=== PATIENT | male | born 1950 | race Caucasian/White ===

== ENCOUNTER 2017-05-30 12:09 | Day surgery (SDC) | payer MEDICARE, OTHER ==
[~2017-05-30] VITALS: Ht 172.7 cm; Wt 92.3 kg
[~2017-05-30 12:09] MED LIST: ASPI325; ASPI325 PO; CLARITIN10 MG PO; ENOX40I SC; GLUCOSAMINE CH PO; HYDR1TAB94 PO; LORA10ER PO; NAPR220 PO; OXYC5 PO; PROM25 PO
[2017-05-30] MEDS ORDERED: ASPI325 PO (12:30)
== END 2017-05-30 13:22 | disposition home or self-care (01) ==
LOC: ORSCSDS 12:09
DX: M54.16 Radiculopathy, lumbar region (principal)
CPT/HCPCS: 99211; J1040

== ENCOUNTER → 2018-02-17 | Outpatient (CLI) | payer MEDICARE, OTHER | END | disposition home or self-care (01) | LOC: LAB SHORT 10:45 → LAB EV 10:45 | DX: S61.402A Unspecified open wound of left hand, initial encounter (principal) | CPT/HCPCS: 87070; 87075; 87077; 87186; 87205 ==

== ENCOUNTER 2019-05-26 11:35 | Inpatient (IN) | payer MEDICARE, OTHER ==
[~2019-05-26] VITALS: Ht 172.7 cm; Wt 96.0 kg
[2019-05-28] MEDS ORDERED: ASPI325 PO (06:21)
[2019-05-28] MEDS ORDERED: DIPH50 PO (06:22)
--- NOTE | 2019-05-28 06:48 | NUR ---
Ambulatory in Day Surgery History, Chart, Medications and Allergies reviewed before start of procedure. Lungs clear T/O to Auscultation. Patient confirms NPO status and agrees with scheduled surgery. Pre-Op teaching done. Pt verbalizes understanding.
--- NOTE | 2019-05-28 18:42 | NUR ---
SHIFT SUMMARY PT HAS DONE WELL POST OP BUT DOES STRUGGLE WITH HTN. PAIN WELL MANAGED, TOLERATING DIET WITH ONE EPISODE OF EMESIS POST THERAPY.
[2019-05-29 04:05] LABS: Hematocrit 35.3 % (37.0-53.0); Hemoglobin 11.8 g/dL (13.5-17.5); Mean Corpuscular HGB 31.1 pg (26.0-34.0); Mean Corpuscular HGB Conc 33.4 g/dL (31.5-36.5); Mean Corpuscular Volume 93 fL (80-100); Mean Platelet Volume 10.5 fL (9.1-12.4); Platelet Count 278 K/mm3 (150-400); RDW Coefficient Variation 12.7 % (11.7-14.2); RDW Standard Deviation 43.3 fL (35.1-46.3); White Blood Cell Count 14.44 K/mm3 (4.00-11.30)
[2019-05-29 04:28] LABS: Anion Gap 7 mmol/L (6-16); Blood Urea Nitrogen 15 mg/dL (8-24); Bun/Creatinine Ratio 20.2 (12.0-20.0); CO2, Blood 27 mmol/L (21-32); Calcium, Blood 8.3 mg/dL (8.5-10.1); Chloride, Blood 103 mmol/L (98-108); Creatinine, Blood 0.74 mg/dL (0.60-1.20); Glomerular Filtration Rate >60 (60-); Glucose, Blood 122 mg/dL (70-99); Sodium, Blood 137 mmol/L (136-145)
--- NOTE | 2019-05-29 06:21 | NUR ---
SHIFT SUMMARY: MAL HAS RESTED COMFORTABLY FOR MOST OF THE SHIFT. HE STATES THAT HIS PAIN IS TOLERABLE WITH THE USE OF APAP AND TORADOL. HE DID TAKE ONE 5 MG OXYCONTIN AT BEDTIME. HE IS WALKING WELL WITH THE FWW. HE IS TOLERATING PO INTAKE WELL. ALL THREE DRESSINGS ARE C/D&I. HE IS ABLE TO MAKE HIS NEEDS KNOWN. MARY HOSE, PAS AND POLAR PACK IN PLACE. HE IS SITTING IN THE RECLINER AT THE BEDSIDE WITH HIS CALL LIGHT IN REACH.
[2019-05-29] MEDS ORDERED: LEVFLO500 PO (07:59)
[2019-05-29] MEDS ORDERED: ASPI325EC PO (07:59)
[2019-05-29] MEDS ORDERED: ENOX40I SC (07:59)
[2019-05-29] MEDS ORDERED: Percocet 5-3251 EACH PO (08:00)
[2019-05-29 12:11] LABS: BAND PERCENT MAN 1 % (0-8); BASOPHILS ABSOLUTE MAN 0.14 K/mm3 (0.00-0.23); BASOPHILS PERCENT MAN 1 % (0-2); BLASTS PERCENT MAN 1 % (0-0); EOSINOPHILS ABSOLUTE MAN 0.28 K/mm3 (0.00-0.68); EOSINOPHILS PERCENT MAN 2 % (0-6); LYMPHOCYTES ABSOLUTE MAN 6.35 K/mm3 (0.84-5.20); LYMPHOCYTES PERCENT MAN 44 % (21-46); METAMYELOCYTE ABSOLUTE MAN 0.28 K/mm3 (0.00-0.00); METAMYELOCYTE PERCENT MAN 2 % (0-0); MONOCYTES ABSOLUTE MAN 3.61 K/mm3 (0.16-1.47); MONOCYTES PERCENT MAN 25 % (4-13); MYELOCYTE ABSOLUTE MAN 0.28 K/mm3 (0.00-0.00); MYELOCYTE PERCENT MAN 2 % (0-0); NEUTROPHILS ABSOLUTE MAN 3.32 K/mm3 (1.96-9.15); SEG NEUTROPHILS PERCENT MAN 22 % (41-73); TOTAL CELLS COUNTED 100
== END 2019-05-29 11:30 | disposition home or self-care (01) | DRG 470 ==
LOC: SURS 05-28 06:09 → PRE IP 05-28 07:30 → SURS 05-28 11:05
PROVIDERS: ADMIT Orthopaedic Surgery
PROC: 0SR904A Replacement of Right Hip Joint with Ceramic on Polyethylene Synthetic Substitute, Uncemented, Open Approach (ICD-10-PCS; principal; 2019-05-28 07:30)
DX: M16.11 Unilateral primary osteoarthritis, right hip (principal); J30.2 Other seasonal allergic rhinitis; Z79.899 Other long term (current) drug therapy
CPT/HCPCS: 36415; 72170; 80048; 83735; 85025; 88300; 97110; 97116; 97161; 97165; 97530; 97535; C1713; C1776; J0171; J0690; J0735; J1100; J1650; J1885; J2250; J2405; J2704; J2795; J3010; J3370; J7120

== ENCOUNTER 2019-10-01 12:05 | Day surgery (SDC) | payer MEDICARE, OTHER ==
[~2019-10-01] VITALS: Ht 172.7 cm; Wt 92.9 kg
[~2019-10-01 12:05] MED LIST changes: +ASPI325EC PO; +DIPH50 PO; +LEVFLO500 PO; +Percocet 5-3251 EACH PO
== END 2019-10-01 14:16 | disposition home or self-care (01) ==
LOC: ORSCSDS 12:05
PROVIDERS: Internal Medicine Gastroenterology
PROC: 0DBM8ZX Excision of Descending Colon, Via Natural or Artificial Opening Endoscopic, Diagnostic (ICD-10-PCS; principal; 2019-10-01 13:30)
PROC: 0DBH8ZX Excision of Cecum, Via Natural or Artificial Opening Endoscopic, Diagnostic (ICD-10-PCS; principal; 2019-10-01 13:30)
DX: Z12.11 Encounter for screening for malignant neoplasm of colon (principal); Z86.010 Personal history of colon polyps; Z80.0 Family history of malignant neoplasm of digestive organs; D12.0 Benign neoplasm of cecum; D12.4 Benign neoplasm of descending colon; K57.30 Diverticulosis of large intestine without perforation or abscess without bleeding; Z79.82 Long term (current) use of aspirin
CPT/HCPCS: 88305; J2704; J7120

== ENCOUNTER → 2020-02-02 | Outpatient (CLI) | payer MEDICARE, OTHER ==
[2020-02-02 08:16] LABS: BASOPHILS ABSOLUTE AUTO 0.11 K/mm3 (0.00-0.23); BASOPHILS PERCENT AUTO 1 % (0-2); EOSINOPHILS ABSOLUTE AUTO 0.87 K/mm3 (0.00-0.68); EOSINOPHILS PERCENT AUTO 9 % (0-6); Hemoglobin 15.2 g/dL (13.5-17.5); IMMATURE GRAN ABSOLUTE AUTO 0.02 K/mm3 (0.00-0.10); IMMATURE GRAN PERCENT AUTO 0 % (0-1); LYMPHOCYTES ABSOLUTE AUTO 2.71 K/mm3 (0.84-5.20); LYMPHOCYTES PERCENT AUTO 29 % (21-46); MONOCYTES ABSOLUTE AUTO 0.62 K/mm3 (0.16-1.47); MONOCYTES PERCENT AUTO 7 % (4-13); Mean Corpuscular HGB 31.7 pg (26.0-34.0); Mean Corpuscular HGB Conc 34.5 g/dL (31.5-36.5); Mean Corpuscular Volume 92 fL (80-100); Mean Platelet Volume 10.6 fL (9.1-12.4); NEUTROPHILS ABSOLUTE AUTO 5.13 K/mm3 (1.96-9.15); NEUTROPHILS PERCENT AUTO 54 % (41-73); Platelet Count 270 K/mm3 (150-400); RDW Coefficient Variation 13.3 % (11.7-14.2); RDW Standard Deviation 45.1 fL (35.1-46.3); Red Blood Cell Count 4.79 M/mm3 (4.30-5.90); White Blood Cell Count 9.46 K/mm3 (4.00-11.30)
== END ==
LOC: LAB EV 08:11 → LAB SHORT 08:11
PROVIDERS: Physician Assistant Medical
DX: M25.559 Pain in unspecified hip (principal)
CPT/HCPCS: 85025; 85651; 86140

== ENCOUNTER 2020-02-03 10:34 | Day surgery (SDC) | payer MEDICARE, OTHER | END 2020-02-03 22:44 | disposition home or self-care (01) | LOC: RAD 10:34 | DX: T84.84XA Pain due to internal orthopedic prosthetic devices, implants and grafts, initial encounter (principal); Y79.2 Prosthetic and other implants, materials and accessory orthopedic devices associated with adverse incidents; E78.5 Hyperlipidemia, unspecified; I10 Essential (primary) hypertension; Z88.2 Allergy status to sulfonamides; Z88.8 Allergy status to other drugs, medicaments and biological substances; J45.909 Unspecified asthma, uncomplicated | CPT/HCPCS: 20610; 77002; A9577; Q9967 ==

== ENCOUNTER → 2020-02-03 | Outpatient (CLI) | payer MEDICARE, OTHER ==
[2020-02-03 12:59] LABS: Body Fluid Crystals NEG (NEGATIVE)
== END | disposition home or self-care (01) ==
LOC: LAB 12:16 → LAB SHORT 12:16
PROVIDERS: Orthopaedic Surgery
DX: M16.11 Unilateral primary osteoarthritis, right hip (principal)
CPT/HCPCS: 87070; 87205; 89060